=== PATIENT | male | born 1950 | race Caucasian/White ===

== ENCOUNTER 2017-02-06 07:20 | Emergency (ER) | payer OTHER ==
[2017-02-06] VITALS (7 sets, daily range): BP systolic 142–214; BP diastolic 67–90; PULSE 88–119; RESP 10–22; O2SAT 93–100
[~2017-02-06] VITALS: Ht 182.9 cm; Wt 134.2 kg
--- NOTE | 2017-02-06 07:21 | ED.REPORT ---
HPI-Neurologic Deficit Date of Service February 06, 2017 ED Provider: Terrence Ray DO 66 year old male with a history of diabetes, HTN, and high cholesterol presents to the ER via EMS complaining of headache and neck pain that suddenly onset while performing some shoulder exercises this morning. Last known normal at 05: 45 today. Associated symptoms include double vision, dizziness, diaphoresis, confusion, and difficulty speaking. Most symptoms quickly resolved, though patient reports residual dizziness and double-vision. FAST exam was negative in the field. Medics report that patient was transiently bradycardic en route. He takes 81mg ASA daily. Nursing Notes Stated Complaint: HEADACHE,NAUSEA,DIZZINESS Nursing Notes Reviewed: Yes Allergies: Coded Allergies: cephalexin (Verified Allergy, Unknown, 08/22/09) General Time Seen by Provider: 07:20 Chief Complaint Other (Headache) Hx Obtained From: Patient Arrived By: Ambulance Sudden in Onset?: Yes Onset Occurred: Just prior to arrival Progression Since Onset: Rapidly improving Location: : Head Quality: Painful Severity: Current: No pain currently Severity: Maximum: Moderate Related History: Reports: Diabetes mellitus, Hypertension Similar Sx Previous: No Risk Factors NIH Stroke Scale Level of Consciousness: Alert and responsive (0) Ask Month & Age: Both questions right (0) Open/Close Eyes/Hand [employer]: Performs both tasks (0) Horizontal EO Movements: Partial gaze palsy (1) Visual Roque: No visual loss (0) Facial Palsy: Minor paralysis (1) Right Arm Motor Drift (10s): No drift 10 sec (0) Left Arm Motor Drift (10s): No drift 10 sec (0) Right Leg Motor Drift (5s): No drift 5 sec (0) Left Leg Motor Drift (5s): No drift 5 sec (0) Limb Ataxia FNF/Heel-Albright: Ataxia in 1 limb (1) (Right Arm) Sensation (Arms/Legs/Face): Pinprick less sharp (1) (Right Leg) Language Aphasia: Loss fluency ID matls (1) Dysarthria: No dysarthria, normal (0) Extinction/Inattention: No exctinct/inattent (0) NIHSS Score: 5 Time NIHSS Performed: 07:48 Date NIHSS Performed: February 06, 2017 CVA Risk Stratification Age >60 Diabetes mellitus Hyperlipidemia Hypertension RF Statements: Risk factors reviewed Past Medical History Past Medical History Notes: CODE STATUS: FULL CODE Past Medical History Reports: Diabetes mellitus, Hyperlipidemia (high cholesterol), Hypertension Smoking History Unknown if Ever Smoker Ambulatory Status Independent Review of Systems Review of Systems Note: +Double Vision +Difficulty Speaking Respiratory: Denies: Shortness of breath Cardiovascular: Denies: Chest pain Musculoskeletal: Reports: Neck pain Skin: Reports Diaphoresis Neurologic: Reports: Confusion, Dizziness, Headache, Vision change, Denies: Focal weakness, Numbness, Slurred speech, Syncope, Weakness Complete sys rev & neg: except as marked. Physical Exam Initial Vital Signs Vital Signs (First) Date Time Temp Pulse Resp B/P Pulse Ox O2 Delivery O2 Flow Rate FiO2 02/06/17 07:20 36.5 88 17 181/89 100 Nasal Cannula 2 Initial VS: Reviewed Neck: Supple, Non-tender, Full range of motion Extremities: Vascular intact, Neuro intact, No swelling, No tenderness Skin: Warm, Dry, No cyanosis General/Constitutional: Awake, Alert, Well developed Appearance / Presentation: Positive: Obese Head / Eyes: Atraumatic, Normocephalic Right lateral rectus muscle palsy. Respiratory / Chest: Breath sounds NL, Breath sounds = bilat, No respiratory distress, No rales, No rhonchi, No wheezing Cardiovascular: Heart rate NL, Regular rhythm, Heart sounds NL, Peripheral circulation NL Neurologic: Oriented X3, Speech NL, No motor deficits, No sensory deficits Right lateral rectus muscle palsy. See NIH Stroke Scale in the Risk section of this note. Interpretation & Diagnostics PROCEDURE: CT ANGIO BRAIN NECK TPA INDICATIONS: STAT READ - CALL ED PROVIDER W/RESULTS IMPRESSION: Prominent subarachnoid blood slightly greater on the left than the right side thought to be arising from the [place] but no cause is seen. Normal vascular enhancement. No aneurysm are vascular abnormality is appreciated. Dictated by: Quang Shannon M.D. on 02/06/2017 at 8:52 Approved by: Quang Shannon M.D. on 02/06/2017 at 9:05 Lab Results Interpretation Result Diagram: 02/06/17 0739 02/06/17 0739 Test 02/06/17 07:39 White Blood Count 9.5th/mm3 (3.8-10.1) Red Blood Count 5.11mil/mm3 (4.40-5.80) Hemoglobin 16.3g/dL (13.8-17.2) Hematocrit 47.1% (41.0-50.0) Mean Corpuscular Volume 92.2fL (81-100) Mean Corpuscular Hemoglobin 31.9pg (27.0-35.0) Mean Corpuscular Hemoglobin Concent 34.6% (32.0-37.0) Red Cell Distribution Width 12.7% (12.3-15.4) Platelet Count 245bil/L (150-400) Neutrophils (%) (Auto) 60.4% (40-74) Lymphocytes (%) (Auto) 25.4% (14-46) Monocytes (%) (Auto) 8.1% (4-12) Eosinophils (%) (Auto) 5.2% (0-5) Basophils (%) (Auto) 0.6% (0-3) Prothrombin Time 10.0sec (8.1-12.5) Prothromb Time International Ratio 0.94ratio Activated Partial Thromboplast Time 21.6sec (22.8-33.0) Sodium Level 139mEq/L (134-144) Potassium Level 3.9mEq/L (3.5-5.2) Chloride Level 97mEq/L (97-108) Carbon Dioxide Level 23mmol/L (18-29) Blood Urea Nitrogen 19mg/dL (8-27) Creatinine 0.81mg/dL (0.76-1.27) Estimat Glomerular Filtration Rate 102mL/min (>59) Glucose Level 326mg/dL (60-99) Calcium Level 9.3mg/dL (8.5-10.1) Total Bilirubin 0.7mg/dL (0.0-1.2) Aspartate Amino Transf (AST/SGOT) 19U/L (0-50) Alanine Aminotransferase (ALT/SGPT) 18U/L (0-44) Alkaline Phosphatase 99U/L (25-160) Troponin T 0.010ug/L (0.0-0.011) Total Protein 7.4g/dL (6.4-8.4) Albumin 4.4g/dL (3.4-5.0) ECG Interpretation ECG Interpretation: Sinus rhythm, rate 88 Inferior Q waves Time: 07:44 Interpreted by: ED physician X-Ray Chest Interpretation Chest Xray Interpretation: IMPRESSION: Acute disease is not appreciated in the semi-upright portable chest. Dictated by: Quang Shannon M.D. on 02/06/2017 at 8:06 Approved by: Quang Shannon M.D. on 02/06/2017 at 8:06 View: Portable, 1 view Interpretation / Wet Read by: Interpret - Radiologist Chest Xray Interpretation: IMPRESSION: Endotracheal tube is positioned approximately 5 cm above the ashley. Dictated by: Nicholas Huggins M.D. on 02/06/2017 at 8:10 Approved by: Nicholas Huggins M.D. on 02/06/2017 at 8:11 View: Portable, 1 view Interpretation / Wet Read by: Interpret - Radiologist CT Head Interpretation IMPRESSION: Large subarachnoid bleed slightly more towards the left than the right side consistent with rupture of [place] aneurysm. This study fulfills neurological imaging criteria for inclusion or exclusion of acute stroke therapies based on available published neurological guidelines. Dictated by: Quang Shannon M.D. on 02/06/2017 at 7:40 Dr. Luz Marina Benavides is aware of these findings. Approved by: Quang Shannon M.D. on 02/06/2017 at 7:45 Study: Head CT no contrast Interpretation / Wet Read by: Interpret - Radiologist Procedures Intubation Intubation Procedure: Intubation indicated by increased somnolence, decreased LOC 7.5 cuffed ETT placed at 25cm at teeth Time: 08:43 Procedure Performed by: ED physician Consent / Setup / Site Prep: Informed consent provided, Consent from patient , Consent from spouse, Time-out performed, Oxygen administered, Pulse oximeter applied, threat monitoring analyst applied, Hand hygiene observed, Stand sterile technique Patient Position: Neutral position Blade / ET Tube / Route: [place] scope, Route: oral Procedural Sedation/Analgesia: Sedation: Etomidate (20mg) Neuromuscular Agent: Succinylcholine (200mg) ET Confirmation: Direct visualization, BS equal, End tidal CO2 device Secured / Marked: ET tube device, Tube marked at teeth Complications: None Post-Procedure: Condition improved, Tolerated procedure well, Patient stable Proced Mod Sedation/Analgesia Sedation: Analgesia: Other (200mg Suc) Re-Eval/Medical Decision Med Decision/Clinical Course Patient care was initiated prior to patient arrival, EMS notified us while in route for a high-risk patient with concerning symptoms without obvious stroke symptoms on exam. Was immediately brought to the monitored room, ABCs were performed as well as a basic bedside neurologic exam which revealed lateral rectus palsy on the left side. This along with the preceding symptoms were highly concerning for acute ischemic stroke or acute hemorrhagic stroke. Code stroke was immediately initiated after initial bedside exam, patient was rushed to CT and is noncontrast brain scan was performed. Patient had an obvious large subarachnoid hemorrhage, and for this reason is obviously not a candidate for TPA. His NIH stroke scale is 5. [facility] was contacted after identification of subarachnoid hemorrhage, the patient was accepted by neurosurgery to the neurosurgical ICU. Helicopter transport was attempted and they were contacted however they are unable to transport due to increment weather. ALS ambulance transport was subsequently initiated. After return from CAT scan, I nicardipine drip was immediately initiated, and the CT angiogram head and neck was ordered and performed while awaiting transport. Initially he was awake and alert with minor neurologic symptoms at the time of presentation, however he had a slowly progressive decline in his neurologic status and became more somnolent and had to be aroused to stay awake. Additionally he downtrending have his oxygen saturation. Given the clinical status, known subarachnoid hemorrhage and decreasing level of consciousness, it was felt that this patient should be prophylactically intubated prior to transport. After intubation, patient was sedated with propofol. No identifiable seizure activity while in the ER, patient is transferred via ALS to [facility]. Source of Hx: Old records Re-Evaluation/Progress #1: Time of Eval: 07:38 Re-Evaluation/Progress Note: Patient's and daughter are now present at bedside. Discussed head CT results and need for transfer. Re-Evaluation/Progress #2: Time of Eval: 07:48 Re-Evaluation/Progress Note: Completed NIH Stroke Scale. Discussed head CT results and need for transfer to [facility]. Patient is amenable to the plan. All other questions addressed. Re-Evaluation/Progress #3: Time of Eval: 07:58 Re-Evaluation/Progress Note: Patient's code status is FULL CODE. Re-Evaluation/Progress #4: Time of Eval: 08:08 Re-Evaluation/Progress Note: Explained transfer process to patient, , and daughter. has signed the transfer papers. All questions addressed. Re-Evaluation/Progress #5: Time of Eval: 08:43 Re-Evaluation/Progress Note: Performed intubation due to increased somnolence. Re-Evaluation/Progress #6: Time of Eval: 09:01 Re-Evaluation/Progress Note: Discussed CTA results with patient's and daughter. All questions addressed. Consultation #1: Referral / Consult Name: Quang Shannon MD Consulted With: On-call physician (Radiology) Call Returned at: 07:42 Note: Dr. Shannon, Radiology, called to discuss head CT results. Consultation #2: Consulted With: Neurology ([facility]) Call Returned at: 07:44 Note: Discussed patient case with Neurology at [facility]. Call [facility] transfer vista and request consult with neurosurgery. Consultation #3: Consulted With: Neurosurgery Call Returned at: 08:02 Note: Discussed patient case with Dr. Cha on behalf of Dr. House, Neurology at [facility]. Please transfer RUSTY. Consultation #4: Referral / Consult Name: Quang Shannon MD Consulted With: On-call physician (Radiology) Call Returned at: 09:00 Note: Discussed CTA. Counseled Regarding: Diagnosis, Lab results, Need for transfer Discharge & Departure Impression: Primary Impression: Hemorrhagic stroke Disposition: Transfer, Acute Care Facility Transfer Requested at: 07:44 Call returned time Receiving Hospital: [facility] Transfer Accepted: Yes Transfer Accepted at: 08:03 Transfer Reason: Higher level of care Spoke with: Specialty physician (Neurology, Dr. Cha on behalf of Dr. House) Patient Status: Stable for transfer Patient Informed: Yes Discharge Condition All VS Reviewed: Yes Condition: Critical Referrals: German Mcdonald MD (PCP) Crit Care Except Billable Proc Time Spent: 105-134 minutes (122) Services Performed: Patient management by me, Time spent at bedside, Reviewing test results, Reviewing imaging, Discussing patient care, Documentation in record, Time with fam/surrogate Critical Care Notes: See MDM Scribe Attestation Portions of this note were transcribed by John Murrell. I, Dr. Ray, personally performed the history, physical exam and medical decision-making; I reviewed and confirmed the accuracy of the information in the transcribed note. Signed by: Beatriz Shelton, 02/06/2017 and 09:19 copies to: German Mcdonald MD, Timothy S DO February 06, 2017 07:20 JOHN MURRELL February 06, 2017 07:28
[2017-02-06] MEDS ORDERED: 0.9% Sodium Chloride 1,000 ML IV ONE (07:26)
[2017-02-06 07:42] LABS: BASOPHILS % (AUTO) 0.6 % (0-3); EOSINOPHILS % (AUTO) 5.2 % (0-5); MONOCYTES % (AUTO) 8.1 % (4-12); Mean Corpuscular Hemoglobin 31.9 pg (27.0-35.0); Mean Corpuscular Volume 92.2 fL (81-100); NEUTROPHILS % (AUTO) 60.4 % (40-74); Platelet Count 245 bil/L (150-400)
[2017-02-06] MEDS ORDERED: NiCARdipine Inj 25 MG in Dextrose 5% 240 ML IV SCH (07:45)
--- NOTE | 2017-02-06 07:47 | DRSVH ---
PROCEDURE: CT BRAIN (TPA) ([id number]) INDICATIONS: Stroke TECHNIQUE: Noncontrast 4.5 mm thick angled axial sections acquired from the foramen magnum to the vertex, with c oronal reformats. COMPARISON: None the study from 08/22/2009 is not available on line at this time.. FINDINGS: Image quality: Excellent. CSF spaces: Basal cisterns are patent. No extra-axial fluid collections. The ventricles are symmet sally in size and shape. Brain: There is a large amount of subarachnoid blood greater on the left than on the right extending along the tentorium and the anterior lower falx. It extends out into the subarachnoid space over the lower convexities left greater than right. The preponderance of blood on the left side compared to t he right in this pattern would be highly suspicious for [place] ruptured aneurysm. No blood is appreciated within the parenchyma or within the lateral ventricles or third ventricle. Skull and face: Calvarium and visualized facial bones appear intact, without suspicious lesions. Sinuses: Visualized sinuses and mastoids are clear. IMPRESSION: Large subarachnoid bleed slightly more towards the left than the right side consistent wi th rupture of [place] aneurysm. This study fulfills neurological imaging criteria for inclusion or exclusion of acute stroke therapie s based on available published neurological guidelines. Dictated by: Quang Shannon M.D. on 02/06/2017 at 7:40 Dr. Luz Marina Benavides is aware of these findings. Approved by: Quang Shannon M.D. on 02/06/2017 at 7:45
[2017-02-06] MEDS ORDERED: Ondansetron 2 mg/mL 2 mL Inj ONE (08:08)
--- NOTE | 2017-02-06 08:08 | DRSVH ---
PROCEDURE: X-RAY CHEST ONE VIEW, PORTABLE ([id number]) INDICATIONS: CEREBROVASCULAR ACCIDENT TECHNIQUE: One view of the chest was acquired. COMPARISON: [facility], , CHEST 1VW (PORTABLE), 08/22/2009, 12:32. FINDINGS: Surgical changes and devices: tool lapper hand leads are seen over the chest. Lungs and pleura: No pleural effusions or pneumothorax. Lungs are clear. Mediastinum: Mediastinal contours appear normal. Heart size is normal. Bones and chest wall: No suspicious bony lesions. Overlying soft tissues appear unremarkable. IMPRESSION: Acute disease is not appreciated in the semi-upright portable chest. Dictated by: Quang Shannon M.D. on 02/06/2017 at 8:06 Approved by: Quang Shannon M.D. on 02/06/2017 at 8:06
[2017-02-06 08:12] LABS: TROPONIN T 0.01 ug/L (0.0-0.011)
[2017-02-06] MEDS ORDERED: Ondansetron 2 mg/mL 2 mL Inj IVPUSH ONE (08:15)
[2017-02-06 08:19] LABS: INR 0.94 ratio
[2017-02-06] MEDS ORDERED: levETIRAcetam Inj 1,500 MG in Dextrose 5% 100 ML IV ONE (08:30)
[2017-02-06] MEDS ORDERED: Succinylcholine Chloride 20 mg/mL 5 mL Inj ONE (08:56)
[2017-02-06] MEDS ORDERED: Propofol 10,000 mCg/mL 20 mL Inj ONE (08:56)
[2017-02-06] MEDS ORDERED: Propofol 10,000 mCg/mL 100 mL Inj ONE (08:59)
[2017-02-06] MEDS ORDERED: Propofol Inj 1,000,000 MCG in IV Premix 1 EACH IV SCH (09:00)
--- NOTE | 2017-02-06 09:06 | DRSVH ---
PROCEDURE: CT ANGIO BRAIN NECK TPA INDICATIONS: STAT READ - CALL ED PROVIDER W/RESULTS TECHNIQUE: Pre-contrast 4.5 mm thick sections acquired from the foramen magnum to the vertex. After the adminis tration of intravenous contrast, 1 mm thick sections acquired from the aortic arch through the [place] of [place]. Post-contrast 4.5 mm thick sections then re-acquired from the foramen magnum to the vert ex. 3-dimensional cndsabc-gzrmowbxu-syghkiahsx (MIP) and/or volume rendering reformats were acquired of the central intracranial vasculature and neck separately. For radiation dose reduction, the foll owing was used: automated exposure control, adjustment of mA and/or kV according to patient size. COMPARISON: [facility], CT, BRAIN (TPA), 02/06/2017, 7:38. FINDINGS: Image quality: Excellent. BRAIN: Brain: There is a prominent subarachnoid bleed surrounding the [place] and extending up the subarachnoid space anteriorly and bilaterally and posteriorly slightly greater on the left than on th e right. No parenchymal blood is seen. Compared to the CT scan one hour prior there is no change in t he ventricular appearance. No ventricular blood is seen. Skull and face: Calvarium and facial bones appear intact, without suspicious lesions. Orbits appear normal. Sinuses: Sinuses and mastoids show some mucosal cysts or focal mucosal thickening inferiorly in the maxillary sinuses bilaterally. HEAD CT ANGIOGRAPHY: Anterior circulation: Intracranial internal carotid arteries are normal in size and flow. The flow within the paired anterior cerebral arteries is normal and symmetric. The flow within the middle cer ebral arteries is normal and symmetric. The anterior communicating artery is seen. No aneurysms are seen. Posterior circulation: Visualized portions of the vertebral arteries demonstrate normal caliber, and join to form a normal appearing basilar artery. Flow within the posterior cerebral arteries is norm al and symmetric. No aneurysms are seen. NECK CT ANGIOGRAPHY: Carotid system: The great vessels demonstrate a conventional anatomy as they arise from the aortic a rch. The origins of the common carotid arteries appear patent. The common carotid arteries demonstr ate normal caliber and courses. The bifurcation regions are both widely patent. The internal caroti d arteries demonstrate normal calibers and courses. Posterior circulation: The origins of the vertebral arteries both appear widely patent. The more mcleod perior extracranial portions of both vertebral arteries also demonstrate normal courses and calibers. They join to form a normal appearing basilar artery. Soft tissues: Visualized neck soft tissues demonstrate no suspicious abnormalities. Bones: No suspicious bony lesions. Visualized cervical spine appears normally aligned. IMPRESSION: Prominent subarachnoid blood slightly greater on the left than the right side thought to be arising from the [place] but no cause is seen. Normal vascular enhancement. No aneurysm a re vascular abnormality is appreciated. Dictated by: Quang Shannon M.D. on 02/06/2017 at 8:52 Approved by: Quang Shannon M.D. on 02/06/2017 at 9:05
--- NOTE | 2017-02-06 09:13 | DRSVH ---
PROCEDURE: X-RAY CHEST ONE VIEW, PORTABLE ([id number]) INDICATIONS: POST INTUBATION TECHNIQUE: One view of the chest was acquired. COMPARISON: [facility], , CHEST 1VW (PORTABLE), 08/22/2009, 12:32. FINDINGS: Surgical changes and devices: Endotracheal tube is present, which is positioned with the distal tip l ocated approximately 5 cm above the level of the ashley. Lungs and pleura: No pleural effusions or pneumothorax. Lungs are clear. Mediastinum: Mediastinal contours appear normal. Heart size is normal. Bones and chest wall: No suspicious bony lesions. Overlying soft tissues appear unremarkable. IMPRESSION: Endotracheal tube is positioned approximately 5 cm above the ashley. Dictated by: Nicholas Huggins M.D. on 02/06/2017 at 8:10 Approved by: Nicholas Huggins M.D. on 02/06/2017 at 8:11
== END 2017-02-06 09:22 | disposition short-term general hospital (02) ==
LOC: SED 08:55
DX: I61.9 Nontraumatic intracerebral hemorrhage, unspecified (principal); E11.9 Type 2 diabetes mellitus without complications; I10 Essential (primary) hypertension; E78.00 Pure hypercholesterolemia, unspecified; Z88.1 Allergy status to other antibiotic agents
CPT/HCPCS: 31500; 36415; 70450; 70496; 70498; 71010; 80053; 82948; 84484; 85025; 85610; 85730; 93005; 94770; 94799; 96374; 96375; 99291; 99292; J0330; J1953; J2405; J7030; Q9967